=== PATIENT | male | born 1980 | race Caucasian/White ===

== ENCOUNTER → 2021-11-11 | Outpatient (CLI) | payer BC | LOC: KOH-I 14:00 | DX: N41.0 Acute prostatitis (principal); R50.9 Fever, unspecified; R10.30 Lower abdominal pain, unspecified; R94.4 Abnormal results of kidney function studies; N30.00 Acute cystitis without hematuria; R30.0 Dysuria; R35.0 Frequency of micturition; M79.10 Myalgia, unspecified site | CPT/HCPCS: 74176 ==